=== PATIENT | female | born 1950 | race Caucasian/White ===

== ENCOUNTER → 2017-05-24 | Outpatient (CLI) | payer OTHER | LOC: RAD 02:18 | DX: Z12.31 Encounter for screening mammogram for malignant neoplasm of breast (principal) ==

== ENCOUNTER → 2018-07-15 | Outpatient (CLI) | payer OTHER | LOC: RAD 01:58 | DX: Z12.31 Encounter for screening mammogram for malignant neoplasm of breast (principal) ==

== ENCOUNTER → 2019-07-17 | Outpatient (CLI) | payer OTHER | LOC: BC 10:15 | DX: Z12.31 Encounter for screening mammogram for malignant neoplasm of breast (principal) ==